=== PATIENT | male | born 1995 | race African-American/Black ===

== ENCOUNTER 2019-04-30 08:12 | Emergency (ER) | payer OTHER ==
[~2019-04-30] VITALS: Ht 193 cm; Wt 111.9 kg
[2019-04-30 08:13] VITALS: BP 131/76
[2019-04-30] MEDS ORDERED: KETOROLAC 60 MG/2 ML VIAL (J1885) IM ONE (08:45)
--- NOTE | 2019-04-30 08:46 | REP ---
Left ankle four views : There is no fracture or dislocation. Mineralization and joint spaces are normal. There are no calcifications or foreign bodies. Impression: Negative left ankle . Electronically Signed by Darian Brenner MD 04/30/2019 08:37 A
[2019-04-30] MEDS ORDERED: KETO10TAB PO (09:06)
== END 2019-04-30 09:16 | disposition home or self-care (01) ==
LOC: M ED 08:12
DX: S93.412A Sprain of calcaneofibular ligament of left ankle, initial encounter (principal); X50.1XXA Overexertion from prolonged static or awkward postures, initial encounter; Y92.099 Unspecified place in other non-institutional residence as the place of occurrence of the external cause; Y93.67 Activity, basketball; Y99.9 Unspecified external cause status
CPT/HCPCS: 73610; 96372; 99283; J1885